=== PATIENT | male | born 1985 | race Caucasian/White ===

== ENCOUNTER 2019-02-21 12:25 | Emergency (ER) | payer OTHER ==
[2019-02-21] MEDS ORDERED: Ketorolac 60 MG/2 ML SDV IM ONE (12:43)
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
== END 2019-02-21 14:08 | disposition home or self-care (01) ==
LOC: MW.ED 12:25
DX: S29.9XXA Unspecified injury of thorax, initial encounter (principal); Y04.0XXA Assault by unarmed brawl or fight, initial encounter
CPT/HCPCS: 71101; 96372; 99283; J1885